=== PATIENT | female | born 1995 | race Caucasian/White ===

== ENCOUNTER 2018-12-01 11:16 | Outpatient (CLI) | payer OTHER ==
[~2018-12-01] VITALS: Ht 175.3 cm; Wt 104.5 kg
[2018-12-01] MEDS ORDERED: PREN-93 PO (11:32)
[2018-12-01 11:33] VITALS: BP 126/80; PULSE 86; RESP 18; Ht 175.3 cm; Wt 104.5 kg
--- NOTE | 2018-12-01 13:14 | TRIAGE ---
OB Triage Datetime Report Generated by CPN: 12/01/2018 13:14 Datetime: 12/01/2018 13:09 Labor Evaluation Frequency: 0 Monitor Mode: External Pattern: Normal: <= 5 Contractions in 10 Minutes Resting Tone [place]: Relaxed Heart Rate FHR Baseline Rate: 140 Monitor Mode: External US Variability: Moderate 6-25 bpm Accelerations: 15X15 Decelerations: None Category: Category I Comments: REVIEWED BY DR VILLEGAS Datetime: 12/01/2018 11:50 Comments: U/S TECH AT BEDSIDE Datetime: 12/01/2018 11:38 Assessment Type: Triage Maternal Assessment Level of Consciousness: Fully Conscious DTR's/Clonus: DTRs 2+; No Clonus Headache: Denies Blurred Vision: No Respiratory Effort: Unlabored; Regular Rhythm; Equal Expansion Breath Sounds, Left: Clear and Equal Breath Sounds, Right: Clear and Equal Nausea/Vomiting: Denies RUQ Epigastric Pain: Denies Lower Extremities Edema: None Degree: None Upper Extremities Edema: None Degree: None Facial Edema: None Fall Risk Assessment History of Falling: (0) No Secondary Diagnosis: (0) No Ambulatory Aid: (0) Bedrest/Nurse Assist IV Therapy: (0) No Gait: (0) Normal/Bedrest/Immobile Mental Status: (0) Oriented to Own Ability Fall Score: 0 Fall Risk Score Definition: No Risk: No action required Datetime: 12/01/2018 11:37 Time of Arrival: 12/01/2018 11:11 EGA: 35.4 Arrived By: Ambulatory Arrived From: Dr. Dhillon Chief Complaint: SENT IN FROM CLINIC WITH HIGH BP'S, R/O PIH Movement: Present Contractions: Denies/Absent Rupture of Membranes: Denies Vaginal Bleeding: None Vaginal Discharge: Denies Recent Sexual Intercouse: Denies Abdominal Trauma: Not Applicable Patient Complaints: None Time Provider Notified: 12/01/2018 11:15 Provider Notified: NELLY Initial Plan: LIONEL
--- NOTE | 2018-12-01 13:42 | TRIAGE ---
OB Triage Datetime Report Generated by CPN: 12/01/2018 13:42 Datetime: 12/01/2018 12:00 Frequency: 0 Monitor Mode: External Pattern: Normal: <= 5 Contractions in 10 Minutes Resting Tone [place]: Relaxed FHR Baseline Rate: 140 Monitor Mode: External US Variability: Moderate 6-25 bpm Accelerations: 10X10 Decelerations: None Category: Category I Datetime: 12/01/2018 11:38 Fall Score: 0 Fall Risk Score Definition: No Risk: No action required Datetime: 12/01/2018 11:37 EGA: 35.4
--- NOTE | 2018-12-01 17:32 | PN ---
Triage Information Date/Time December 01, 2018 Reason for visit: Rule out PIH Weeks of Gestation 35 weeks and 4 days /Para 1 para 0 Diabetes: none Additional information 23-year-old with IUP at 35 weeks and 4 days, was sent from the office for follow-up of blood pressure and for blood pressure check rule out PIH. Patient denies any headache, blurred vision epigastric pain or right upper quadrant pain. Denies any symptoms. Blood pressure was in the range of 130s 140s over 90s. Noted to have 1+ protein in her urine in the office visit. Objective Vital Signs Date Temp Pulse Resp B/P (MAP) Pulse Ox O2 O2 Flow FiO2 Time Delivery Rate 12/01/18 97.9 86 18 126/80 Room Air 11:33 (95) Heart Rate: 130's Heart Rate Comments Category 1 and appropriate for gestational age Exam General appearance: Alert and oriented x4 does not appear to be in acute distress Abdomen: Soft, gravid, fundal height consider gestational age NST: Category 1 and appropriate for gestational age PIH labs are negative BPP: 8 UA negative Laboratory Tests Test 12/01/18 11:20 12/01/18 11:47 Urine Color COLORLESS Urine Clarity CLEAR Urine pH 7.0 Urine Specific [place] 1.001 L Urine Ketones NEGATIVE Urine Nitrite NEGATIVE Urine Bilirubin NEGATIVE Urine Urobilinogen NEGATIVE Urine Leukocyte Esterase NEGATIVE Urine Hemoglobin NEGATIVE Urine Glucose NEGATIVE Urine Total Protein NEGATIVE White Blood Count 8.1 Red Blood Count 4.18 L Hemoglobin 11.9 L Hematocrit 35.1 L Mean Corpuscular Volume 84.0 Mean Corpuscular Hemoglobin 28.5 L Mean Corpuscular Hemoglobin Concent 33.9 Red Cell Distribution Width 13.4 Platelet Count 269 Mean Platelet Volume 10.8 H Immature Granulocytes % 0.500 H Neutrophils % 64.7 Lymphocytes % 23.1 Monocytes % 7.2 Eosinophils % 4.4 Basophils % 0.1 Nucleated Red Blood Cells % 0.0 Immature Granulocytes # 0.040 H Neutrophils # 5.3 Lymphocytes # 1.9 Monocytes # 0.6 Eosinophils # 0.4 Basophils # 0.0 Nucleated Red Blood Cells # 0.0 Prothrombin Time 11.7 L Prothrombin Time Ratio 0.9 INR International Normalized Ratio 0.85 Activated Partial Thromboplast Time 27.4 Fibrinogen 563.0 H Sodium Level 139 Potassium Level 3.7 Chloride Level 109 Carbon Dioxide Level 20 L Anion Gap 10 Blood Urea Nitrogen 6 L Creatinine 0.50 Est Glomerular Filtrat Rate mL/min > 60 Glucose Level 101 Uric Acid 5.0 Calcium Level 9.3 Total Bilirubin 0.1 L Direct Bilirubin 0.00 Indirect Bilirubin 0.1 Aspartate Amino Transf (AST/SGOT) 17 Alanine Aminotransferase (ALT/SGPT) 11 L Alkaline Phosphatase 166 H Total Protein 6.6 Albumin 3.4 Globulin 3.20 Albumin/Globulin Ratio 1.06 Results/Medications Result Diagram: 12/01/18 1147 12/01/18 1147 Results 24 hrs Laboratory Tests Test 12/01/18 11:20 12/01/18 11:47 Urine Color COLORLESS Urine Clarity CLEAR Urine pH 7.0 Urine Specific [place] 1.001 L Urine Ketones NEGATIVE Urine Nitrite NEGATIVE Urine Bilirubin NEGATIVE Urine Urobilinogen NEGATIVE Urine Leukocyte Esterase NEGATIVE Urine Hemoglobin NEGATIVE Urine Glucose NEGATIVE Urine Total Protein NEGATIVE White Blood Count 8.1 Red Blood Count 4.18 L Hemoglobin 11.9 L Hematocrit 35.1 L Mean Corpuscular Volume 84.0 Mean Corpuscular Hemoglobin 28.5 L Mean Corpuscular Hemoglobin Concent 33.9 Red Cell Distribution Width 13.4 Platelet Count 269 Mean Platelet Volume 10.8 H Immature Granulocytes % 0.500 H Neutrophils % 64.7 Lymphocytes % 23.1 Monocytes % 7.2 Eosinophils % 4.4 Basophils % 0.1 Nucleated Red Blood Cells % 0.0 Immature Granulocytes # 0.040 H Neutrophils # 5.3 Lymphocytes # 1.9 Monocytes # 0.6 Eosinophils # 0.4 Basophils # 0.0 Nucleated Red Blood Cells # 0.0 Prothrombin Time 11.7 L Prothrombin Time Ratio 0.9 INR International Normalized Ratio 0.85 Activated Partial Thromboplast Time 27.4 Fibrinogen 563.0 H Sodium Level 139 Potassium Level 3.7 Chloride Level 109 Carbon Dioxide Level 20 L Anion Gap 10 Blood Urea Nitrogen 6 L Creatinine 0.50 Est Glomerular Filtrat Rate mL/min > 60 Glucose Level 101 Uric Acid 5.0 Calcium Level 9.3 Total Bilirubin 0.1 L Direct Bilirubin 0.00 Indirect Bilirubin 0.1 Aspartate Amino Transf (AST/SGOT) 17 Alanine Aminotransferase (ALT/SGPT) 11 L Alkaline Phosphatase 166 H Total Protein 6.6 Albumin 3.4 Globulin 3.20 Albumin/Globulin Ratio 1.06 Imaging Results PROCEDURE: US OB biophysical profile. CLINICAL INDICATION: decreased movements, hypertension TECHNIQUE: Multiple sonographic images of the pelvis were obtained. The images were reviewed on a PACS workstation. COMPARISON: No prior studies are available for comparison. FINDINGS: There is a single live intrauterine gestation. Cardiac activity is present with 141 beats per minute. There is a vertex presentation. The placenta is anterior. There is no evidence of placental abruption. There is a normal amount of amniotic fluid with an SIMONE = 11 cm. Biophysical profile: movement 2/2 tone 2/2. breathing 2/2 SIMONE 2/2 Total 8/8 RPTAT: AA . IMPRESSION: Normal biophysical profile. Disposition: Discharge Assessment/Plan IUP at 35 weeks and 4 days Gestational hypertension, no evidence of superimposed preeclampsia Asymptomatic Blood pressure well controlled Patient labs are negative testing reassuring No evidence of labor Patient will be discharged home with a strict preeclampsia precaution, labor precaution and follow-up with OB office within 48 hours after discharge from the hospital Signs and symptoms of preeclampsia discussed with patient and strict precaution was given Patient verbalized understanding. MARIA TERESA VILLEGAS MD Dec 01, 2018 17:32
== END 2018-12-01 13:25 | disposition home or self-care (01) ==
LOC: OBT 11:16 → L-D 11:17 → OBT 13:25
PROVIDERS: ATTEND Obstetrics & Gynecology
DX: O13.3 Gestational [pregnancy-induced] hypertension without significant proteinuria, third trimester (principal); O36.8130 Decreased fetal movements, third trimester, not applicable or unspecified; Z3A.35 35 weeks gestation of pregnancy
CPT/HCPCS: 76818; 80053; 81003; 84560; 85025; 85384; 85610; 85730; Z7500; G0463

== ENCOUNTER 2018-12-14 16:05 | Inpatient (IN) | payer OTHER ==
[~2018-12-14] VITALS: Ht 175.3 cm; Wt 106.4 kg
[~2018-12-14 16:05] MED LIST: PREN-93 PO
[2018-12-14 16:45] VITALS: Ht 175.3 cm; Wt 106.4 kg
[2018-12-14 16:47] VITALS: BP 138/82; RESP 20
[2018-12-14] MEDS ORDERED: LACTATED RINGER'S 1,000 ML IV PRN (20:15)
[2018-12-14] MEDS ORDERED: IBUPROFEN 600 MG TAB PO PRN (20:30)
[2018-12-14] MEDS ORDERED: MISOPROSTOL 200 MCG TAB PR PRN (20:30)
[2018-12-14] MEDS ORDERED: OXYTOCIN 30 UNITS/LR 500 ML IV SCH ×2 (20:30)
[2018-12-14] MEDS ORDERED: CARBOPROST 250 MCG INJ IM PRN (20:30)
[2018-12-14] MEDS ORDERED: MISOPROSTOL 50 MCG CAPSULE VAG ONE (20:30)
[2018-12-14] MEDS ORDERED: AMPICILLIN 2 GM/NS (PMX) 100 ML IV ONE (20:30)
[2018-12-14] MEDS ORDERED: BUTORPHANOL 2 MG INJ IV PRN (20:30)
[2018-12-14] MEDS ORDERED: METHYLERGONOVINE 0.2 MG INJ IM PRN (20:30)
[2018-12-14] MEDS ORDERED: OXYTOCIN 30 UNITS/LR 500 ML IV PRN (20:30)
[2018-12-14] MEDS ORDERED: LIDOCAINE 1% (MPF) 30 ML INJ INJ PRN (20:30)
[2018-12-14] MEDS: LACTATED RINGER'S 1,000 ML IV SCH (20:45)
--- NOTE | 2018-12-14 21:23 | HP ---
Date/Time of Note Date/Time of Note DATE: 12/14/18 TIME: 21:14 OB - History Hx of Present Free Text/Dictation 23 years old 1 with single intrauterine at 37 weeks and 3 days seen for care at the office today. Her blood pressure was elevated. She was sent to triage for further evaluation. She states good movement. She denies nausea, vomiting, shortness of breath, chest pain, headache, visual changes, vaginal bleeding or LOF. Chief Complaint: Elevated blood pressure : 1 Care: Good Care Ultrasounds: Normal mid trimester US Obstetrical Complications: None Medical Complications: None Past Family/Social History * Past Medical, Surgical, Family and Obstetric Histories reviewed from chart. Blood Type: A+ Rubella: immune RPR/VDRL: Negative GBS Status: Positive HBsAG: Negative OB Admission Exam Vital Signs Vital Signs Vital Signs Date Temp Pulse Resp B/P (MAP) Pulse Ox O2 O2 Flow FiO2 Time Delivery Rate 12/14/18 98.5 20 138/82 Room Air 16:47 (100) Physical Exam HEENT: WNL Heart: Rhythm Normal Lungs: Clear Abdomen: WNL Extremities: Normal Cervical Dilatation: Fingertip Effacement: 25% Station: -3 Membranes: Intact Heart Rate: 130's Accelerations: Accelerations Present Decelerations: No Decelerations Varibility: Moderate Contractions on Admission: >10 Minutes Apart Last 72 hours Lab Results CBC & BMP 12/14/18 17:23 Liver Function Test 12/14/18 17:23 Alanine Aminotransferase (ALT/SGPT) < 6 L Albumin 3.6 Alkaline Phosphatase 180 H Aspartate Amino Transf (AST/SGOT) 16 Direct Bilirubin 0.00 Total Protein 6.9 OB Assessment/Plan Other plan: 23 years old 1 with single intrauterine at 37 weeks and 3 days with gestational hypertension admitted for induction of labor - FHR: No sign of metabolic acidosis- Category I - Continuous EFM, toco - CBC, blood type and screen - Analgesia options with R/B/A discussed in detail with patient - Epidural per patient request - C;ytotec per protocol - Please see the orders - A+/Rubella: Immune - GBS: Positive, ampicillin in active phase Admission, procedures, expectations, risks and possible complications have been discussed in detail with the patient. Risk of vaginal delivery including but not limited to bleeding, infection, cervical laceration, placental retention, injury to fetus, blood transfusion, blood transfusion related infection, risk of anesthesia, adhesion, cervical laceration, episiotomy/laceration, possible delivery with risk of bleeding, infection, injury to other organs (bowel, bladder, ureter, vessels, nerves), injury to fetus, blood transfusion, blood transfusion related infection, risk of anesthesia, scar and hernia formation, needs for future , removal of uterus or any other indicated surgery discussed with the patient. She expressed understanding and repeats the risks. All of her questions were answered. She signed the informed consent. PHYSICIAN'S VERIFICATION OF INFORMED CONSENT The patient was counseled regarding the procedure, its indications, risks, potential complications and alternatives and any questions were answered. Consen t was obtained. PLANNED PROCEDURE/TREATMENT: Vaginal delivery, episiotomy, repair of laceration possible delivery TAMIKO DUNN Dec 14, 2018 21:23
[2018-12-15] MEDS: MISOPROSTOL 50 MCG CAPSULE PO SCH ×5 (00:19→20:31)
[2018-12-15] MEDS ORDERED: AMPICILLIN 1 GM/NS (PMX) 50 ML IV SCH (00:30)
[2018-12-15] MEDS: AMPICILLIN 1 GM/NS (PMX) 50 ML IV SCH ×5 (04:28→20:31)
[2018-12-15] MEDS: LACTATED RINGER'S 1,000 ML IV SCH ×2 (06:27→15:46)
[2018-12-16] MEDS: LACTATED RINGER'S 1,000 ML IV SCH ×2 (00:27→13:23)
[2018-12-16] MEDS: MISOPROSTOL 50 MCG CAPSULE PO SCH (00:27)
[2018-12-16] MEDS: AMPICILLIN 1 GM/NS (PMX) 50 ML IV SCH ×6 (00:27→20:54)
[2018-12-16] MEDS ORDERED: OXYTOCIN 30 UNITS/LR 500 ML IV SCH (05:30)
--- NOTE | 2018-12-16 21:29 | PREAC ---
Date/Time of Note Date/Time of Note DATE: 12/16/18 TIME: 21:28 Anesthesia Eval and Record Evaluation Time Pre-Procedure Interview DATE: 12/16/18 TIME: 21:28 Age 23 Sex female NPO: 8 hrs Preoperative diagnosis IUP Planned procedure L&D Epidural Past Medical History Past Medical History: None Surgery & Anesthesia Issues No known issue Meds Anticoagulation: No Beta Anton within 24 hr: No Reason Beta Anton not given: Pt. not on B-Anton Reported Medications Vit No.124/Iron/FA ( Vitamin Tablet) 1 Each Tablet, 1 EACH PO DAILY, TAB 12/01/18 Current Medications Lactated Ringer's 1,000 ml @ 125 mls/hr Q8H IV Last administered on 12/16/18at 13:23; Admin Dose 125 MLS/HR; Start 12/14/18 at 20:15 Butorphanol Tartrate (Stadol) 2 mg Q2H PRN IV .PAIN; Start 12/14/18 at 20:30 Lidocaine (Xylocaine 1% (Mpf)) 30 ml ONCE PRN INJ .EPISIOTOMY; Start 12/14/18 at 20:30 Oxytocin/Lactated Ringer's 500 ml @ 500 mls/hr ONCE POST IV ; Start 12/14/18 at 20:30 Oxytocin/Lactated Ringer's 500 ml @ 125 mls/hr POST IV ; Start 12/14/18 at 20:30 Ibuprofen (Motrin) 600 mg ONCE PRN PO .PAIN 1-5; Start 12/14/18 at 20:30 Lactated Ringer's 1,000 ml @ 2,000 mls/hr Q30M PRN IV .ANESTHESIA Last administered on 12/16/18at 20:25; Admin Dose 2,000 MLS/HR; Start 12/14/18 at 20:15 Oxytocin/Lactated Ringer's 500 ml @ 0 mls/hr ONCE PRN IV .VAGINAL BLEEDING; Start 12/14/18 at 20:30 Methylergonovine Maleate (Methergine) 0.2 mg ONCE PRN IM .VAGINAL BLEEDING; Start 12/14/18 at 20:30 Carboprost Tromethamine (Hemabate) 250 mcg ONCE PRN IM .VAGINAL BLEEDING; Start 12/14/18 at 20:30 Misoprostol (Cytotec) 1,000 mcg ONCE PRN NM .VAGINAL BLEEDING; Start 12/14/18 at 20:30 Ampicillin 50 ml @ 100 mls/hr Q4H IV Last administered on 12/16/18at 20:54; Admin Dose 100 MLS/HR; Start 12/15/18 at 04:30 Oxytocin/Lactated Ringer's 500 ml @ 0 mls/hr FOR INDUCTION IV Last administered on 12/16/18at 08:47; Admin Dose 1 MLS/HR; Start 12/16/18 at 05:30 Meds reviewed: Yes Allergies Coded Allergies: No Known Allergy (Unverified , 12/14/18) Allergies Reviewed: Yes Labs/Studies Labs Reviewed: Reviewed by anesthesiologist Result Diagram: 12/14/18 1723 12/14/18 172 test: Positive Studies: ECG Pre-procedure Exam Last vitals Vital Signs Date Temp Pulse Resp B/P (MAP) Pulse Ox O2 O2 Flow FiO2 Time Delivery Rate 12/14/18 98.5 20 138/82 Room Air 16:47 (100) Airway: Adequate mouth opening, Adequate thyromental dist Mallampati: Mallampati II Teeth: Normal Lung: Normal Heart: Normal ASA Physical Status ASA physical status: 2 Emergency: None Planned Anesthetic Neuraxial: Epidural Planned Pain Management Epidural Pre-operative Attestations Prior to commencing anesthesia and surgery, the patient was re-evaluated, there was verification of: *The patient's identity *The results of appropriate recent lab work and preoperative vital signs *The above evaluation not changing prior to induction *Anesthetic plan, risk benefits, alternative and complications discussed with patient/family; questions answered; patient/family understands, accepts and wishes to proceed. ARJUN LOVE MD Dec 16, 2018 21:29
[2018-12-16] MEDS ORDERED: ROPIVACAINE 0.2% 100 ML INJ EPI SCH (21:30)
[2018-12-16] MEDS ORDERED: ROPIVACAINE 0.2% 100 ML ONE (21:31)
[2018-12-17] MEDS: AMPICILLIN 1 GM/NS (PMX) 50 ML IV SCH ×3 (00:26→08:16)
[2018-12-17] MEDS: LACTATED RINGER'S 1,000 ML IV SCH ×2 (00:26→06:02)
--- NOTE | 2018-12-17 08:09 | PAC ---
Date/Time of Note Date/Time of Note DATE: 12/17/18 TIME: 08:09 Post-Anesthesia Notes Post-Anesthesia Note Last documented vital signs Vital Signs Date Temp Pulse Resp B/P (MAP) Pulse Ox O2 O2 Flow FiO2 Time Delivery Rate 12/14/18 98.5 20 138/82 Room Air 16:47 (100) Activity: WNL Respiratory function: WNL Cardiovascular function: WNL Mental status: Baseline Pain reasonably controlled: Yes Hydration appropriate: Yes Nausea/Vomiting absent: Yes Comments BP:112/56, P:78, Spo2:100%, T:98,8 ARJUN LOVE MD Dec 17, 2018 08:09
[2018-12-17] MEDS ORDERED: GENTAMICIN 120 MG/NS (PMX) 100 ML IVPB SCH ×2 (10:00)
[2018-12-17] MEDS ORDERED: OXYTOCIN 30 UNITS/LR 500 ML IV SCH (10:54)
--- NOTE | 2018-12-17 10:56 | QN ---
Documentation Comment Delivery Summary Weeks of Gestation Term gestation Placenta Delivered: Spontaneously Meconium: none Episiotomy: Yes Indication for episiotomy heart rate tracing category 2 Laceration repair: Medial episiotomy repaired with 2-0 Vicryl in layered fashion Anesthesia type: Epidural Estimated blood loss: 300 Sponge & Needle done & correct: Yes All needle counts correct: Yes Any foreign bodies felt in the: No Delivery Information Sex Infant Sex: male Apgars 1 Minute: 9 5 Minute: 9 Suctioning Nose & mouth suctioned at amish: Yes Delee suction performed: No Umbilical Cord Umbilical cord with: 3 Vessels Cord presentations: nuchal cord (Tight nuchal cord around the neck x1 reduced manually) Cord Blood was obtained: Yes Mother & Baby Disposition Disposition Baby's weight 7 pounds 2 ounces/ 3225 gr Patient received ampicillin and gentamicin for positive GBS Mom & Baby to Maternity; Good: Yes Baby to NICU: Yes Copies To: CC: TAMIKO DUNN ; LAILA HARO MD Dec 17, 2018 10:56
[2018-12-17] MEDS ORDERED: DIBUCAINE 1% 30 GM OINT TOP PRN (11:00)
[2018-12-17] MEDS ORDERED: CARBOPROST 250 MCG INJ IM PRN (11:00)
[2018-12-17] MEDS ORDERED: METHYLERGONOVINE 0.2 MG INJ IM PRN (11:00)
[2018-12-17] MEDS ORDERED: MAGNESIUM HYDROXIDE 30ML CUP PO PRN (11:00)
[2018-12-17] MEDS ORDERED: ONDANSETRON 4 MG INJ IV PRN (11:00)
[2018-12-17] MEDS ORDERED: ACETAMINOPHEN 325 MG TAB PO PRN ×2 (11:00)
[2018-12-17] MEDS ORDERED: OXYTOCIN 30 UNITS/LR 500 ML IV PRN (11:00)
[2018-12-17] MEDS ORDERED: MISOPROSTOL 200 MCG TAB PR PRN (11:00)
[2018-12-17] MEDS ORDERED: BENZOCAINE 20% 56 ML SPRAY TOP PRN (11:00)
[2018-12-17] MEDS ORDERED: SENNA/DOCUSATE NA (8.6MG/50MG) TAB PO PRN (11:00)
[2018-12-17] MEDS ORDERED: WITCH HAZEL/GLYCERIN PAD PR PRN (11:00)
[2018-12-17 12:20] VITALS: BP 135/86; PULSE 65; RESP 18
[2018-12-17] MEDS: LACTATED RINGER'S 1,000 ML IV* SCH ×2 (12:20→18:54)
[2018-12-17] MEDS: IBUPROFEN 600 MG TAB PO PRN ×2 (13:33→21:47)
[2018-12-17] MEDS: LANOLIN HPA 1 PKT TOP PRN (13:35)
[2018-12-17] MEDS: CEFAZOLIN 1 GM/50 ML (PMX) 50 ML IVPB SCH ×2 (13:39→21:48)
[2018-12-17 15:50] VITALS: BP 127/75; PULSE 74; RESP 16
[2018-12-17 20:30] VITALS: BP 121/73; PULSE 69; RESP 17
[2018-12-18 03:59] VITALS: BP 117/69; PULSE 72; RESP 18
[2018-12-18] MEDS: IBUPROFEN 600 MG TAB PO PRN ×4 (05:41→23:33)
[2018-12-18] MEDS: LACTATED RINGER'S 1,000 ML IV* SCH (05:41)
[2018-12-18] MEDS: CEFAZOLIN 1 GM/50 ML (PMX) 50 ML IVPB SCH (05:41)
[2018-12-18 08:55] VITALS: BP 128/75; PULSE 71; RESP 16
--- NOTE | 2018-12-18 10:59 | PN ---
Date/Time of Note Date/Time of Note DATE: 12/18/18 TIME: 10:57 OB Subjective Subjective Subjective PPD# 1 Patient is doing well. She denies nausea, vomiting, shortness of breath, chest pain, headache. She has been ambulating without difficulty, tolerating regular diet. Pain is well controlled on current medications OB Objective Objective Objective VS - Last 72 Hours, by Label Date Temp Pulse Resp B/P (MAP) Pulse Ox O2 O2 Flow FiO2 Time Delivery Rate 12/18/18 98.0 72 18 117/69 Room Air 03:59 (85) 12/17/18 98.5 69 17 121/73 Room Air 20:30 (89) 12/17/18 98.6 74 16 127/75 Room Air 15:50 (92) 12/17/18 98.1 65 18 135/86 Room Air 12:20 (102) General: AAO X 3, comfortable, NAD, appropriate mood and affect. ABD: +BS. Soft, non-tender. Uterus 2 cm below umbilicus Flank: No CVA tenderness (B/L) LE: Mild edema. No clubbing, cyanosis, thigh or calf tenderness (B/L). Homans 'sign is negative OB Assessment/Plan Other plan: 23 years old 1 para 1001 with gestational hypertension s/p normal vaginal delivery at 37 weeks and 6 days. PPD#1 - AF, VSS - Contraception methods with R/B/A/FR discussed - Continue care - Discharge home tomorrow - Rx and instruction given - Follow up in 2 and 6 weeks at clinic TAMIKO DUNN Dec 18, 2018 10:59
--- NOTE | 2018-12-18 11:00 | DS ---
Date/Time of Note Date/Time of Note DATE: 12/18/18 TIME: 10:59 Obstetrical Discharge Record Final Diagnosis Final Diagnosis: Term delivered Other Final Diagnosis 23 years old 1 para 1001 with gestational hypertension s/p normal vaginal delivery at 37 weeks and 6 days. PPD#1. course was unremarkable. She is ambulating and tolerating regular diet. She is voiding without difficulty. Pain is controlled on current medication. Her blood pressure in the last 3 days is within normal limits. - AF, VSS - Contraception methods with R/B/A/FR discussed - Continue care - Discharge home tomorrow - Rx and instruction given - Follow up in 2 and 6 weeks at clinic Complications Induction: Yes (Gestational hypertension) Condition on Discharge Physical Assessment Last Vitals: Vital Signs Date Temp Pulse Resp B/P (MAP) Pulse Ox O2 O2 Flow FiO2 Time Delivery Rate 12/18/18 98.0 72 18 117/69 Room Air 03:59 (85) Voiding: Yes Bowel Movement: Yes Fundus: Firm Calf Tenderness: No Patient Condition: Stable TAMIKO DUNN Dec 18, 2018 11:00
[2018-12-18] MEDS: LANOLIN HPA 1 PKT TOP PRN (13:30)
[2018-12-18 15:40] VITALS: BP 120/64; PULSE 75; RESP 18
[2018-12-18 16:30] VITALS: RESP 16
[2018-12-18 20:00] VITALS: BP 128/76; PULSE 75; RESP 20
[2018-12-19 04:15] VITALS: BP 113/60; PULSE 67; RESP 18
[2018-12-19] MEDS: IBUPROFEN 600 MG TAB PO PRN ×2 (05:28→11:45)
[2018-12-19 07:45] VITALS: BP 114/68; PULSE 66; RESP 19
[2018-12-19] MEDS: LANOLIN HPA 1 PKT TOP PRN (11:45)
[2018-12-19 15:45] VITALS: BP 120/71; PULSE 77
--- NOTE | 2018-12-20 17:04 | DELSUM ---
Delivery Summary A-C Datetime Report Generated by CPN: 12/20/2018 17:04 DELIVERY PERSONNEL [employer] Subcontractor: Surendra, Stephany MATERNAL INFORMATION Delivery Anesthesia: Epidural Medications in Delivery: PITOCIN 30 UNITS IN 500 ML IV BOLUS AFTER DELIVERY Delivery QBL (ml): 300 Placenta Cultured: No Maternal Complications: Other Other Maternal Complications: ELEVATED BP RN Comments: EFW: [id number] LABOR SUMMARY EDC: 01/01/2019 00:00 No. Babies in Womb: 1 Attempted: No Labor Anesthesia: Epidural LABOR INFORMATION Reason for Induction: Gest. HTN/PreEclam/Eclamp; Other Reason for Induction- Other: ELEVATED BP Onset of Labor: 12/15/2018 15:00 Complete Dilatation: 12/17/2018 08:23 Cervical Ripening Agents: Cytotec @ Oxytocin: Induction Group B Beta Strep: Positive Antibiotics # of Doses: AMPICILLIN x15 Gentamycin x1 Antibiotics Time of Last Dose: 12/17/2018 09:56 Steroids Given: None Reason Steroids Not Administered: Not Applicable MEMBRANES Membranes Rupture Method: Artificial Rupture of Membranes: 12/17/2018 09:41 Length of Rupture (hr): 0.33 Amniotic Fluid Color: Clear Amniotic Fluid Amount: Moderate Amniotic Fluid Odor: Normal STAGES OF LABOR Stage 1 hr: 41 Stage 1 min: 23 Stage 2 hr: 1 Stage 2 min: 38 Stage 3 hr: 0 Stage 3 min: 4 Total Time in Labor hr: 43 Total Time in Labor min: 5 VAGINAL DELIVERY Episiotomy: Median Laceration Extension: N/A Laceration Type: None Laceration Repair: Yes Initial Vag Sponge Count: 10 Final Vag Sponge Count: 10 Initial Vag Sharps Count: 1+3 Final Vag Sharps Count: 4 Sponge Count Correct: Yes Sharps Count Correct: Yes BABY A INFORMATION Delivery Date/Time: 12/17/2018 10:01 Method of Delivery: Vaginal Born in Route : No : N/A Forceps: N/A Vacuum Extraction: N/A Shoulder Dystocia : N/A SHOULDER DYSTOCIA BABY A Delivery Date/Time: 12/17/2018 10:01 PRESENTATION/POSITION BABY A Presentation: Cephalic Cephalic Presentation: Vertex Vertex Position: Right Occipital Posterior Breech Presentation: N/A PLACENTA INFORMATION BABY A Placenta Delivery Time : 12/17/2018 10:05 Placenta Method of Delivery: Spontaneous Placenta Status: Delivered SCORES BABY A Heart Rate 1 min: >100 bpm Resp Effort 1 min: Good Cry Reflex Irritability 1 min: Cough/Sneeze/Pulls Away Muscle Tone 1 min: Active Motion Color 1 min: Body [place], Extremit Blue Resuscitation Effort 1 min: Tactile Stimulation SCORE 1 MIN: 9 Heart Rate 5 min: >100 bpm Resp Effort 5 min: Good Cry Reflex Irritability 5 min: Cough/Sneeze/Pulls Away Muscle Tone 5 min: Active Motion Color 5 min: Body [place], Extremit Blue Resuscitation Effort 5 min: Tactile Stimulation SCORE 5 MIN: 9 INFORMATION BABY A Gestational Age at Delivery: 37.5 Gestational Status: Early Term- 37- 38.6 Weeks Outcome : Liveborn Condition : Stable Sex: Male IDENTIFICATION/MEDS BABY A ID Band Number: [id number] ID Band Location: Right Leg; Left Arm Sensor Applied: Yes Sensor Number: [id number] Sensor Location : Cord Clamp Vitamin K Given : Not Given Erythromycin Given: Not Given WEIGHT/LENGTH BABY A Infant Birthweight (gm): 3225 Weight (lb): 7 Infant Weight (oz): 2 Length (in): 19.00 Infant Length (cm): 48.26 CORD INFORMATION BABY A No. Cord Vessels: 3 Nuchal Cord : Around Neck x1, Tight Cord Blood Taken: Yes Suction: Mouth; Nose ASSESSMENT BABY A Complications: Multiple Late Decels Physical Findings at Delivery: Within Normal Limits Infant Respirations: Appears Normal Supervisor Floor Assembly/ALS Called : No Infant Care By: Orion VILLAFANA/Cj HAYS Transferred To: Remains with Mother
== END 2018-12-19 17:00 | disposition home or self-care (01) | DRG 807 ==
LOC: OBT 16:05 → L-D 16:06 → OBT 19:44 → L-D 23:27 → PP1 12-17 13:10
PROVIDERS: ADMIT Obstetrics & Gynecology; ATTEND Obstetrics & Gynecology
PROC: 10E0XZZ Delivery of Products of Conception, External Approach (ICD-10-PCS; principal; 2018-12-14)
PROC: 0W8NXZZ Division of Female Perineum, External Approach (ICD-10-PCS; 2018-12-14)
DX: O13.4 Gestational [pregnancy-induced] hypertension without significant proteinuria, complicating childbirth (principal); O69.1XX0 Labor and delivery complicated by cord around neck, with compression, not applicable or unspecified; O99.824 Streptococcus B carrier state complicating childbirth; Z3A.37 37 weeks gestation of pregnancy; Z37.0 Single live birth
CPT/HCPCS: 62319; 76815; 76818; 80053; 81003; 84560; 85025; 85610; 85730; 86592; 86850; 86900; 86901; 87340; 88307; 99464; G0463; J0290; J0690; J1580; J2590; J2795; J7120